=== PATIENT | female | born 1990 | race African-American/Black ===

== ENCOUNTER 2017-05-21 17:02 | Emergency (ER) | payer OTHER ==
[2017-05-21 17:14] LABS: Glucose,Whole Blood 131 mg/dL (75-99)
[2017-05-21] MEDS ORDERED: SODIUM CHLORIDE 0.9% 500 ML IV STA (19:51)
[2017-05-21] MEDS ORDERED: diphenhydrAMINE 50 MG/ML 1 ML VIAL IVP STA (19:52)
[2017-05-21] MEDS ORDERED: METOCLOPRAMIDE 5 MG/ML 2 ML VIAL IVP STA (19:53)
--- NOTE | 2017-05-21 20:02 | ED ---
Seizure HPI - General Chief Complaint: Seizure Stated Complaint: pos seizure Time Seen by Provider: 05/21/17 19:37 Source: patient Mode of arrival: wheelchair Limitations: no limitations - History of Present Illness Initial Comments: 26-year-old female patient presents to the emergency department today for evaluation after having a seizure. She states that her sister witnessed the seizure. Her sister is now present to provide information however patient reports that the seizure lasted 5 minutes. States that this is actually short for her. States that she was diagnosed with a seizure disorder a couple of years ago. States her last seizure was in March. States that she takes Trileptal and started taking Topamax this weekend. She denies any other new medications. Denies any recent illnesses. She says she has also been having a migraine headache for the last 4 days. States that she does have a history of migraines. States that her pain is located behind her left eye and in her left restoration. She states that she is having sensitivity to light. States she is nauseated. Has not vomited. She states that this is consistent with her usual migraine pattern. She states that she is having some blurred vision in her right eye which is a new symptom her. She states that she is treated by Dr. Baxter as her neurologist. Patient denies any recent rash, fever, chills, shortness breath, chest pain, dizziness, weakness, abdominal pain, diarrhea, constipation, back pain, hematuria, dysuria, urinary urgency, urinary frequency , headache, visual changes, or any other complaints. - Related Data Home Medications Medication Instructions Recorded Confirmed Dicyclomine [Bentyl] 10 mg PO DAILY PRN 05/21/17 05/21/17 Famotidine [Pepcid] 20 mg PO DAILY 05/21/17 05/21/17 OXcarbazepine [Trileptal] 300 mg PO BID 05/21/17 05/21/17 Topiramate [Topamax] 50 tab PO BID 05/21/17 05/21/17 metFORMIN HCL [Glucophage] 500 mg PO BID 05/21/17 05/21/17 Allergies Allergy/AdvReac Type Severity Reaction Status Date / Time amoxicillin Allergy Diarrhea Verified 05/21/17 19:59 codeine Allergy Nausea & Verified 05/21/17 19:59 Vomiting Penicillins Allergy Diarrhea Verified 05/21/17 19:59 Review of Systems ROS Statement: Those systems with pertinent positive or pertinent negative responses have been documented in the HPI. ROS Other: All systems not noted in ROS Statement are negative. Past Medical History Past Medical History: Diabetes Mellitus, Seizure Disorder History of Any Multi-Drug Resistant Organisms: None Reported Past Surgical History: Cholecystectomy Past Psychological History: No Psychological Hx Reported Smoking Status: Never smoker Past Alcohol Use History: Rare Past Drug Use History: None Reported General Exam Limitations: no limitations General appearance: alert, in no apparent distress, other (This is a well- developed, well-nourished adult female patient in no acute distress. Vital signs upon presentation are temperature 98.4F, pulse 80, respirations 20, blood pressure 128/88, pulse ox 100% on room air.) Eye exam: Present: normal appearance, PERRL, EOMI. Absent: scleral icterus, conjunctival injection, nystagmus, periorbital swelling ENT exam: Present: normal exam, normal oropharynx, mucous membranes moist Neck exam: Present: normal inspection. Absent: tenderness, meningismus, lymphadenopathy Respiratory exam: Present: normal lung sounds bilaterally. Absent: respiratory distress, wheezes, rales, rhonchi, stridor Cardiovascular Exam: Present: regular rate, normal rhythm, normal heart sounds. Absent: systolic murmur, diastolic murmur, rubs, gallop, clicks GI/Abdominal exam: Present: soft, normal bowel sounds. Absent: distended, tenderness, guarding, rebound, rigid Neurological exam: Present: alert, oriented X3, CN II-XII intact, other ( Strength in all 4 extremities is 5/5.) Psychiatric exam: Present: normal affect, normal mood Skin exam: Present: warm, dry, intact, normal color. Absent: rash Course Vital Signs 05/21/17 05/21/17 17:06 20:10 Temperature 98.4 F Pulse Rate 80 70 Respiratory 20 18 Rate Blood Pressure 128/88 110/67 O2 Sat by Pulse 100 100 Oximetry Medical Decision Making - Medical Decision Making 26-year-old female patient presents to the emergency department today for evaluation of seizure and migraine headache. Physical examination is unremarkable. Patient is neurologically intact. Labs are obtained and were unremarkable. EKG was obtained and showed normal sinus rhythm with a sinus arrhythmia. Patient reported she had been taking her medications as directed. She was reporting symptoms consistent with her usual migraine pattern. She did report some blurred vision in the right eye however visual acuity was 20/25 in both eyes with corrective lenses. Patient was given IV fluids, Reglan, and Benadryl. She reports that symptoms have resolved. She'll be discharged home at this time to follow up with her neurologist. She is instructed to return here immediately for any new, worsening, or concerning symptoms. She verbalizes understanding and agrees with this plan. - Lab Data Result diagrams: 05/21/17 20:18 05/21/17 20:18 Lab Results 05/21/17 05/21/17 05/21/17 Range/Units 17:12 20:18 20:18 WBC 7.7 (3.8-10.6) k/uL RBC 4.96 (3.80-5.40) m/uL Hgb 13.4 (11.4-16.0) gm/dL Hct 41.1 (34.0-46.0) % MCV 82.7 (80.0-100.0) fL MCH 27.1 (25.0-35.0) pg MCHC 32.7 (31.0-37.0) g/dL RDW 14.0 (11.5-15.5) % Plt Count 308 (150-450) k/uL Neutrophils % 44 % Lymphocytes % 43 % Monocytes % 5 % Eosinophils % 6 % Basophils % 1 % Neutrophils # 3.4 (1.3-7.7) k/uL Lymphocytes # 3.3 (1.0-4.8) k/uL Monocytes # 0.4 (0-1.0) k/uL Eosinophils # 0.4 (0-0.7) k/uL Basophils # 0.1 (0-0.2) k/uL Sodium 141 (137-145) mmol/L Potassium 4.1 (3.5-5.1) mmol/L Chloride 105 (98-107) mmol/L Carbon Dioxide 24 (22-30) mmol/L Anion Gap 12 mmol/L BUN 10 (7-17) mg/dL Creatinine 0.70 (0.52-1.04) mg/dL Est GFR (MDRD) Af Amer >60 (>60 ml/min/1.73 sqM) Est GFR (MDRD) Non-Af >60 (>60 ml/min/1.73 sqM) Glucose 109 H (74-99) mg/dL POC Glucose (mg/dL) 131 H (75-99) mg/dL POC Glu Resident Care Director ID Keyana Kaur Calcium 9.5 (8.4-10.2) mg/dL Total Bilirubin 0.4 (0.2-1.3) mg/dL AST 26 (14-36) U/L ALT 34 (9-52) U/L Alkaline Phosphatase 80 (38-126) U/L Total Protein 7.8 (6.3-8.2) g/dL Albumin 4.3 (3.5-5.0) g/dL Urine Color Urine Appearance (Clear) Urine pH (5.0-8.0) Ur Specific Mcnary (1.001-1.035) Urine Protein (Negative) Urine Glucose (UA) (Negative) Urine Ketones (Negative) Urine Blood (Negative) Urine Nitrite (Negative) Urine Bilirubin (Negative) Urine Urobilinogen (<2.0) mg/dL Ur Leukocyte Esterase (Negative) Urine HCG, Qual (Not Detectd) Urine Opiates Screen (NotDetected) Ur Oxycodone Screen (NotDetected) Urine Methadone Screen (NotDetected) Ur Propoxyphene Screen (NotDetected) Ur Barbiturates Screen (NotDetected) U Tricyclic Antidepress (NotDetected) Ur Phencyclidine Scrn (NotDetected) Ur Amphetamines Screen (NotDetected) U Methamphetamines Scrn (NotDetected) U Benzodiazepines Scrn (NotDetected) Urine Cocaine Screen (NotDetected) U Marijuana (THC) Screen (NotDetected) 05/21/17 05/21/17 Range/Units 20:34 20:34 WBC (3.8-10.6) k/uL RBC (3.80-5.40) m/uL Hgb (11.4-16.0) gm/dL Hct (34.0-46.0) % MCV (80.0-100.0) fL MCH (25.0-35.0) pg MCHC (31.0-37.0) g/dL RDW (11.5-15.5) % Plt Count (150-450) k/uL Neutrophils % % Lymphocytes % % Monocytes % % Eosinophils % % Basophils % % Neutrophils # (1.3-7.7) k/uL Lymphocytes # (1.0-4.8) k/uL Monocytes # (0-1.0) k/uL Eosinophils # (0-0.7) k/uL Basophils # (0-0.2) k/uL Sodium (137-145) mmol/L Potassium (3.5-5.1) mmol/L Chloride (98-107) mmol/L Carbon Dioxide (22-30) mmol/L Anion Gap mmol/L BUN (7-17) mg/dL Creatinine (0.52-1.04) mg/dL Est GFR (MDRD) Af Amer (>60 ml/min/1.73 sqM) Est GFR (MDRD) Non-Af (>60 ml/min/1.73 sqM) Glucose (74-99) mg/dL POC Glucose (mg/dL) (75-99) mg/dL POC Glu Resident Care Director ID Calcium (8.4-10.2) mg/dL Total Bilirubin (0.2-1.3) mg/dL AST (14-36) U/L ALT (9-52) U/L Alkaline Phosphatase (38-126) U/L Total Protein (6.3-8.2) g/dL Albumin (3.5-5.0) g/dL Urine Color Yellow Urine Appearance Clear (Clear) Urine pH 5.5 (5.0-8.0) Ur Specific Mcnary 1.032 (1.001-1.035) Urine Protein Trace H (Negative) Urine Glucose (UA) Negative (Negative) Urine Ketones Negative (Negative) Urine Blood Negative (Negative) Urine Nitrite Negative (Negative) Urine Bilirubin Negative (Negative) Urine Urobilinogen <2.0 (<2.0) mg/dL Ur Leukocyte Esterase Negative (Negative) Urine HCG, Qual Not Detected (Not Detectd) Urine Opiates Screen Not Detected (NotDetected) Ur Oxycodone Screen Not Detected (NotDetected) Urine Methadone Screen Not Detected (NotDetected) Ur Propoxyphene Screen Not Detected (NotDetected) Ur Barbiturates Screen Not Detected (NotDetected) U Tricyclic Antidepress Not Detected (NotDetected) Ur Phencyclidine Scrn Not Detected (NotDetected) Ur Amphetamines Screen Not Detected (NotDetected) U Methamphetamines Scrn Not Detected (NotDetected) U Benzodiazepines Scrn Not Detected (NotDetected) Urine Cocaine Screen Not Detected (NotDetected) U Marijuana (THC) Screen Not Detected (NotDetected) Disposition Clinical Impression: Migraine headache, Seizure Disposition: HOME SELF-CARE Condition: Good Instructions: Recurrent Seizures in Adults (ED) Additional Instructions: Follow-up with your neurologist as soon as possible. Keep a seizure and headache diary. Return here immediately for any new, worsening, or concerning symptoms. Referrals: Melissa Sr MD [Primary Care Provider] - 1-2 days Time of Disposition: 21:49
[2017-05-21 20:31] VITALS: RESP 18
[2017-05-21 20:35] LABS: Basophils # (A) 0.1 k/uL (0-0.2); Basophils % (A) 1 %; Eosinophils # (A) 0.4 k/uL (0-0.7); Eosinophils % (A) 6 %; HCT 41.1 % (34.0-46.0); HGB 13.4 gm/dL (11.4-16.0); Lymphocytes # (A) 3.3 k/uL (1.0-4.8); Lymphocytes % (A) 43 %; MCH 27.1 pg (25.0-35.0); MCHC 32.7 g/dL (31.0-37.0); MCV 82.7 fL (80.0-100.0); Mean Platelet Volume 7.8; Monocytes # (A) 0.4 k/uL (0-1.0); Monocytes % (A) 5 %; Neutrophils # (A) 3.4 k/uL (1.3-7.7); Neutrophils % (A) 44 %; Platelet Count 308 k/uL (150-450); RBC 4.96 m/uL (3.80-5.40); WBC 7.7 k/uL (3.8-10.6)
[2017-05-21 20:41] LABS: ALT 34 U/L (9-52); AST 26 U/L (14-36); Albumin 4.3 g/dL (3.5-5.0); Alkaline Phosphatase 80 U/L (38-126); Anion Gap 12 mmol/L; Blood Urea Nitrogen 10 mg/dL (7-17); Calcium 9.5 mg/dL (8.4-10.2); Carbon Dioxide 24 mmol/L (22-30); Chloride 105 mmol/L (98-107); Glucose 109 mg/dL (74-99); Potassium 4.1 mmol/L (3.5-5.1); Sodium 141 mmol/L (137-145); Total Bilirubin 0.4 mg/dL (0.2-1.3); Total Protein 7.8 g/dL (6.3-8.2)
[2017-05-21 20:51] LABS: Appearance,Urine Clear (Clear); Bilirubin,Urine Negative (Negative); Blood,Urine Negative (Negative); Color,Urine Yellow; Glucose,Urine (UA) Negative (Negative); Ketones,Urine Negative (Negative); Leukocyte Esterase,Urine Negative (Negative); Nitrite,Urine Negative (Negative); PH, Urine 5.5 (5.0-8.0); Protein,Urine Trace (Negative); Specific Gravity,Urine 1.032 (1.001-1.035); Urobilinogen,Urine <2.0 mg/dL (<2.0)
[2017-05-21 20:59] LABS: Amphetamine Screen,Urine Not Detected (NotDetected); Barbiturate Screen,Urine Not Detected (NotDetected); Benzodiazepines Screen,Urine Not Detected (NotDetected); Cocaine Screen,Urine Not Detected (NotDetected); Methadone Screen, Urine Not Detected (NotDetected); Opiate Screen,Urine Not Detected (NotDetected); Oxycodone Screen, Urine Not Detected (NotDetected); Phencyclidine Screen,Urine Not Detected (NotDetected); Tricyclic Antidepressant,Urine Not Detected (NotDetected); Urn Cannabinoid Scrn Not Detected (NotDetected)
[2017-05-21 22:19] VITALS: BP 107/59; PULSE 95; TEMP 98.2
== END 2017-05-21 22:19 | disposition home or self-care (01) ==
LOC: EC 17:02
DX: G43.909 Migraine, unspecified, not intractable, without status migrainosus (principal); R56.9 Unspecified convulsions; E11.9 Type 2 diabetes mellitus without complications; Z79.899 Other long term (current) drug therapy; Z79.84 Long term (current) use of oral hypoglycemic drugs; Z88.0 Allergy status to penicillin; Z88.5 Allergy status to narcotic agent
CPT/HCPCS: 36415; 93005; 80053; 85025; 81003; 81025; 80306; 99284; 96374; 96375; J1200; J2765

== ENCOUNTER 2017-08-15 18:24 | Inpatient (IN) | payer MEDICAID, OTHER ==
[2017-08-15] MEDS ORDERED: LORazepam 2 MG/ML INJ IV STA ×2 (19:00→22:27)
[2017-08-15] MEDS: ACETAMINOPHEN TAB 500 MG TAB PO STA ×2 (19:19→19:21)
[2017-08-15 19:24] LABS: Basophils % (A) 0 %; Eosinophils # (A) 0.3 k/uL (0-0.7); Eosinophils % (A) 3 %; HCT 39.4 % (34.0-46.0); HGB 13.1 gm/dL (11.4-16.0); Lymphocytes % (A) 29 %; MCH 27.2 pg (25.0-35.0); MCHC 33.2 g/dL (31.0-37.0); MCV 81.9 fL (80.0-100.0); Mean Platelet Volume 7.4; Monocytes # (A) 0.5 k/uL (0-1.0); Monocytes % (A) 5 %; Neutrophils # (A) 6.1 k/uL (1.3-7.7); Neutrophils % (A) 60 %; Platelet Count 312 k/uL (150-450); RBC 4.81 m/uL (3.80-5.40); RDW 12.9 % (11.5-15.5)
[2017-08-15 19:36] LABS: ALT 27 U/L (9-52); AST 24 U/L (14-36); Albumin 3.9 g/dL (3.5-5.0); Alkaline Phosphatase 83 U/L (38-126); Anion Gap 13 mmol/L; Blood Urea Nitrogen 10 mg/dL (7-17); Calcium 9.6 mg/dL (8.4-10.2); Carbon Dioxide 26 mmol/L (22-30); Chloride 104 mmol/L (98-107); Glucose 137 mg/dL (74-99); Potassium 3.9 mmol/L (3.5-5.1); Sodium 143 mmol/L (137-145); Total Bilirubin 0.4 mg/dL (0.2-1.3); Total Protein 7.1 g/dL (6.3-8.2)
--- NOTE | 2017-08-15 19:54 | CT ---
EXAMINATION TYPE: CT brain wo con DATE OF EXAM: 08/15/2017 COMPARISON: NONE INDICATION: Seizure today, history of seizures. DLP: 981.7 mGycm, Automated exposure control for dose reduction was used. CONTRAST: None CT of the brain is performed utilizing 3 mm thick sections through the posterior fossa and 3 mm thick sections through the remaining calvarium. Study is performed within 24 hours of arrival to the hosp [facility]. No abnormal hyperdensity is present to suggest an acute intracranial hemorrhage. No mass lesion is evident. No acute infarcts are evident. Ventricles and sulci are appropriate for the patient age. There is extensive mucosal thickening within the bilateral maxillary sinuses ethmoid air cells and le ft sphenoid sinus. Retention cyst within the right sphenoid sinus. Mild mucosal thickening is within the frontal sinuses. Mastoid air cells are clear. IMPRESSIONS: 1. No acute intracranial process. 2. Clinical correlation recommended for pansinusitis.
--- NOTE | 2017-08-15 20:57 | ED ---
Seizure HPI - General Chief Complaint: Seizure Stated Complaint: Suicidal Time Seen by Provider: 08/15/17 18:59 Source: patient, EMS Mode of arrival: EMS - History of Present Illness Initial Comments: 27 years O female with history of seizure disorder hasn't had a seizure today it lasted for 1-2 minutes she was postictal on arrival and she verbalized that she wants to harm she was quite uncooperative she was not forthcoming with information that she expressed some anger when I try to get information about her suicidal ideation or suicidal plan. She has a headache denies any chest pain no shortness of breath, she is angry and no forthcoming with the review of system either - Related Data Home Medications Medication Instructions Recorded Confirmed Dicyclomine [Bentyl] 10 mg PO DAILY PRN 05/21/17 08/15/17 Famotidine [Pepcid] 20 mg PO DAILY 05/21/17 08/15/17 OXcarbazepine [Trileptal] 300 mg PO BID 05/21/17 08/15/17 Topiramate [Topamax] 50 tab PO BID 05/21/17 08/15/17 metFORMIN HCL [Glucophage] 500 mg PO BID 05/21/17 08/15/17 Allergies Allergy/AdvReac Type Severity Reaction Status Date / Time amoxicillin Allergy Diarrhea Verified 08/15/17 18:57 codeine Allergy Nausea & Verified 08/15/17 18:57 Vomiting Penicillins Allergy Diarrhea Verified 08/15/17 18:57 Review of Systems ROS Statement: Those systems with pertinent positive or pertinent negative responses have been documented in the HPI. ROS Other: All systems not noted in ROS Statement are negative. Past Medical History Past Medical History: Diabetes Mellitus, Seizure Disorder History of Any Multi-Drug Resistant Organisms: None Reported Past Surgical History: Cholecystectomy Past Psychological History: No Psychological Hx Reported Smoking Status: Never smoker Past Alcohol Use History: Rare Past Drug Use History: None Reported General Exam - General Exam Comments Initial Comments: General: The patient is awake and alert, in no distress, and does not appear acutely ill. Skin: Skin is warm and dry and no rashes or lesions are noted. Eye: Pupils are equal, round and reactive to light, extra-ocular movements are intact; there is normal conjunctiva bilaterally. Ears, nose, mouth and throat: There are moist mucous membranes and no oral lesions. Neck: The neck is supple, there is no tenderness or JVD. Cardiovascular: There is a regular rate and rhythm. No murmur, rub or gallop is appreciated. Respiratory: To auscultation bilateral, no wheezing no rhonchi no distress respiratory vilchis noticed Gastrointestinal: Soft, non-distended, non-tender abdomen without masses or organomegaly noted. There is no rebound or guarding present. Bowel sounds are unremarkable. Back: There is no tenderness to palpation in the midline. There is no obvious deformity. Musculoskeletal: Normal ROM, no tenderness, There is no pedal edema. There is no calf tenderness or swelling. No cords were appreciated. Neurological: CN II-XII intact, Cranial nerves III through XII are intact. There are no obvious motor or sensory deficits. Coordination appears grossly intact. Speech is normal. Psychiatric: Admits to suicidal ideation, no forthcoming with information Course Vital Signs 08/15/17 08/15/17 18:30 18:45 Temperature 98.0 F Pulse Rate 81 Respiratory 19 19 Rate Blood Pressure 150/91 O2 Sat by Pulse 98 Oximetry EKG is normal sinus rhythm mom with sinus arrhythmia ventricular rate is 69 [place] interval is 156 QRS duration is 96 QT/QTC 390/417 and review of this EKG does not reveal any ST elevation or ST depression All her labs are reviewed and head CT, CBC, CMP are unremarkable head CT is normal she is cleared medically considering her suicidal ideation she ought to be admitted will consult the part 1 of psychiatry Medical Decision Making - Lab Data Result diagrams: 08/15/17 19:12 08/15/17 19:12 Lab Results 08/15/17 08/15/17 Range/Units 19:12 19:12 WBC 10.0 (3.8-10.6) k/uL RBC 4.81 (3.80-5.40) m/uL Hgb 13.1 (11.4-16.0) gm/dL Hct 39.4 (34.0-46.0) % MCV 81.9 (80.0-100.0) fL MCH 27.2 (25.0-35.0) pg MCHC 33.2 (31.0-37.0) g/dL RDW 12.9 (11.5-15.5) % Plt Count 312 (150-450) k/uL Neutrophils % 60 % Lymphocytes % 29 % Monocytes % 5 % Eosinophils % 3 % Basophils % 0 % Neutrophils # 6.1 (1.3-7.7) k/uL Lymphocytes # 3.0 (1.0-4.8) k/uL Monocytes # 0.5 (0-1.0) k/uL Eosinophils # 0.3 (0-0.7) k/uL Basophils # 0.0 (0-0.2) k/uL Sodium 143 (137-145) mmol/L Potassium 3.9 (3.5-5.1) mmol/L Chloride 104 (98-107) mmol/L Carbon Dioxide 26 (22-30) mmol/L Anion Gap 13 mmol/L BUN 10 (7-17) mg/dL Creatinine 0.71 (0.52-1.04) mg/dL Est GFR (CKD-EPI)AfAm >90 (>60 ml/min/1.73 sqM) Est GFR (CKD-EPI)NonAf >90 (>60 ml/min/1.73 sqM) Glucose 137 H (74-99) mg/dL Calcium 9.6 (8.4-10.2) mg/dL Total Bilirubin 0.4 (0.2-1.3) mg/dL AST 24 (14-36) U/L ALT 27 (9-52) U/L Alkaline Phosphatase 83 (38-126) U/L Total Protein 7.1 (6.3-8.2) g/dL Albumin 3.9 (3.5-5.0) g/dL Disposition Clinical Impression: Seizure disorder, Suicidal ideation, Sinusitis Disposition: ADMITTED IP TO THIS [facility] Referrals: Melissa Sr MD [Primary Care Provider] - 1-2 days
[2017-08-15] MEDS ORDERED: LEVOFLOXACIN 500 MG TAB PO STA (21:00)
[2017-08-15] MEDS ORDERED: ACETAMINOPHEN TAB 500 MG TAB PO PRN (21:00)
[2017-08-15 22:06] LABS: Appearance,Urine Clear (Clear); Bacteria,Urine Occasional /hpf; Bilirubin,Urine Negative (Negative); Blood,Urine Trace (Negative); Color,Urine Yellow; Glucose,Urine (UA) Negative (Negative); Ketones,Urine Negative (Negative); Leukocyte Esterase,Urine Negative (Negative); Mucus,Urine Rare /hpf; Nitrite,Urine Negative (Negative); Protein,Urine Negative (Negative); RBC,Urine 1 /hpf (0-5); Specific Gravity,Urine 1.016 (1.001-1.035); Squamous Epithelial Cell,Urine 2 /hpf (0-4); Urobilinogen,Urine <2.0 mg/dL (<2.0); WBC,Urine 2 /hpf (0-5)
[2017-08-15 22:07] LABS: Amphetamine Screen,Urine Not Detected (NotDetected); Barbiturate Screen,Urine Not Detected (NotDetected); Benzodiazepines Screen,Urine Not Detected (NotDetected); Cocaine Screen,Urine Not Detected (NotDetected); Methadone Screen, Urine Not Detected (NotDetected); Opiate Screen,Urine Not Detected (NotDetected); Oxycodone Screen, Urine Not Detected (NotDetected); Phencyclidine Screen,Urine Not Detected (NotDetected); Tricyclic Antidepressant,Urine Not Detected (NotDetected); Urn Cannabinoid Scrn Not Detected (NotDetected)
[2017-08-15] MEDS ORDERED: MAGNESIUM HYDROXIDE 2,400 MG/10 ML CUP PO PRN (23:40)
[2017-08-15] MEDS ORDERED: ZIPRASIDONE 20 MG VIAL IM PRN (23:40)
[2017-08-15] MEDS ORDERED: MAG HYDROX/AL HYDROX/SIMETH 30 ML CUP PO PRN (23:40)
[2017-08-15] MEDS ORDERED: DICYCLOMINE 10 MG CAP PO PRN (23:44)
[2017-08-16 03:35] VITALS: BP 142/78; PULSE 76; RESP 16; TEMP 98.2; BMI 40.2
[2017-08-16 06:12] LABS: Glucose,Whole Blood 134 mg/dL (75-99)
[2017-08-16] MEDS ORDERED: metFORMIN 500 MG TAB PO SCH (07:30)
[2017-08-16] MEDS ORDERED: TOPIRAMATE 25 MG TAB PO SCH (09:00)
[2017-08-16] MEDS ORDERED: FAMOTIDINE 20 MG TAB PO SCH (09:00)
[2017-08-16] MEDS ORDERED: OXcarbazepine 300 MG TAB PO SCH (09:00)
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
[2017-08-16 12:40] LABS: Glucose,Whole Blood 109 mg/dL (75-99)
--- NOTE | 2017-08-16 12:53 | P.DS ---
Providers Date of admission: 08/15/17 23:37 Expected date of discharge: 08/16/17 Attending physician: Emerson Capone Consults: 08/15/17 23:40 Consult Physician Routine Consulting Provider: Steve Romano Consult Reason/Comments: Follow up H & P Do you want consulting provider notified?: Yes Primary care physician: [facility] Course: Patient had her psychiatric evaluation and psychosocial evaluation. She was not started on any new medications after psychiatric evaluation. Following psychosocial evaluation it was determined that patient could be discharged home safely. In view of this patient is being discharged. Condition on discharge: This is a overweight/obese ambulatory black female with good hygiene. She is polite and cooperative. She does not show any psychomotor agitation or retardation. Her speech is spontaneous relevant and goal-directed. Her mood is mildly anxious and affect is appropriate to the thought content. She denies hallucinations delusional thinking suicidal and homicidal thoughts. She is eager to go home and take care of her daughter and go back to work. Her insight and judgment are adequate. 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 ALLERGY to amoxicillin and codeine and penicillins. Seizure disorder. Diabetes mellitus. GERD. Overweight/obesity. Patient was advised to continue her outpatient treatment with her neurologist and family doctor. Plan - Discharge Summary Discharge Rx Participant: No New Discharge Prescriptions: New Acetaminophen Tab [Tylenol] 1,000 mg PO Q6HR PRN tab PRN Reason: Fever And/ Or Pain Continue Topiramate [Topamax] 50 tab PO BID Dicyclomine [Bentyl] 10 mg PO DAILY PRN PRN Reason: Pain metFORMIN HCL [Glucophage] 500 mg PO BID OXcarbazepine [Trileptal] 300 mg PO BID Famotidine [Pepcid] 20 mg PO DAILY Discharge Medication List Dicyclomine [Bentyl] 10 mg PO DAILY PRN 05/21/17 [History] Famotidine [Pepcid] 20 mg PO DAILY 05/21/17 [History] OXcarbazepine [Trileptal] 300 mg PO BID 05/21/17 [History] Topiramate [Topamax] 50 tab PO BID 05/21/17 [History] metFORMIN HCL [Glucophage] 500 mg PO BID 05/21/17 [History] Acetaminophen Tab [Tylenol] 1,000 mg PO Q6HR PRN tab 08/16/17 [Rx] Follow up Appointment(s)/Referral(s): Melissa Sr MD [Primary Care Provider] - 1-2 days
[2017-08-16 13:11] LABS: Hemoglobin A1C 6.7 % (4.0-6.0)
--- NOTE | 2017-08-16 15:32 | P.CONS ---
History of Present Illness - Reason for Consult Recommendations regarding diabetic medications and medical clearance - History of Present Illness Patient is on 7-year-old pleasant female admitted to psychiatric floor for her psychiatric issues. Patient is diabetic patient denied any fever chills nausea vomiting dysuria. Patient also has seizure disorder patient is seizure-free for longtime. Review of Systems REVIEW OF SYSTEMS: CONSTITUTIONAL: No fever, no malaise, no fatigue. HEENT: No recent visual problems or hearing problems. Denied any sore throat. CARDIOVASCULAR: No chest pain, orthopnea, PND, no palpitations, no syncope. PULMONARY: No shortness of breath, no cough, no hemoptysis. GASTROINTESTINAL: No diarrhea, no nausea, no vomiting, no abdominal pain. Normoactive bowel sounds. NEUROLOGICAL: No headaches, no weakness, no numbness. HEMATOLOGICAL: Denies any bleeding or petechiae. GENITOURINARY: Denies any burning micturition, frequency, or urgency. MUSCULOSKELETAL/RHEUMATOLOGICAL: Denies any joint pain, swelling, or any muscle pain. ENDOCRINE: Denies any polyuria or polydipsia. The rest of the 14-point review of systems is negative. Past Medical History Past Medical History: Diabetes Mellitus, Seizure Disorder History of Any Multi-Drug Resistant Organisms: None Reported Past Surgical History: Cholecystectomy Smoking Status: Never smoker Medications and Allergies Home Medications Medication Instructions Recorded Confirmed Type Dicyclomine [Bentyl] 10 mg PO DAILY PRN 05/21/17 08/15/17 History Famotidine [Pepcid] 20 mg PO DAILY 05/21/17 08/15/17 History OXcarbazepine [Trileptal] 300 mg PO BID 05/21/17 08/15/17 History Topiramate [Topamax] 50 tab PO BID 05/21/17 08/15/17 History metFORMIN HCL [Glucophage] 500 mg PO BID 05/21/17 08/15/17 History Acetaminophen Tab [Tylenol] 1,000 mg PO Q6HR PRN tab 08/16/17 Rx Allergies Allergy/AdvReac Type Severity Reaction Status Date / Time amoxicillin Allergy Diarrhea Verified 08/15/17 23:55 codeine Allergy Nausea & Verified 08/15/17 23:55 Vomiting Penicillins Allergy Diarrhea Verified 08/15/17 23:55 Physical Exam Vitals: Vital Signs Temp Pulse Pulse Resp BP BP Pulse Ox 08/16/17 03:12 98.2 F 76 16 142/78 08/15/17 18:45 19 08/15/17 18:30 98.0 F 81 19 150/91 98 Intake and Output 08/16/17 08/16/17 08/16/17 06:59 14:59 22:59 Other: Weight 127.2 kg PHYSICAL EXAMINATION: GENERAL: The patient is alert and oriented x3, not in any acute distress. Well developed, well nourished. HEENT: Pupils are round and equally reacting to light. EOMI. No scleral icterus. No conjunctival pallor. Normocephalic, atraumatic. No pharyngeal erythema. No thyromegaly. CARDIOVASCULAR: S1 and S2 present. No murmurs, rubs, or gallops. PULMONARY: Chest is clear to auscultation, no wheezing or crackles. ABDOMEN: Soft, nontender, nondistended, normoactive bowel sounds. No palpable organomegaly. MUSCULOSKELETAL: No joint swelling or deformity. EXTREMITIES: No cyanosis, clubbing, or pedal edema. NEUROLOGICAL: Gross neurological examination did not reveal any focal deficits. SKIN: No rashes. Results CBC & Chem 7: 08/15/17 19:12 08/15/17 19:12 Labs: Abnormal Lab Results - Last 24 Hours (Table) 08/15/17 08/15/17 08/16/17 Range/Units 19:12 21:42 06:09 Glucose 137 H (74-99) mg/dL POC Glucose (mg/dL) 134 H (75-99) mg/dL Urine Blood Trace H (Negative) Urine Bacteria Occasional H (None) /hpf Urine Mucus Rare H (None) /hpf 08/16/17 Range/Units 12:27 Glucose (74-99) mg/dL POC Glucose (mg/dL) 109 H (75-99) mg/dL Urine Blood (Negative) Urine Bacteria (None) /hpf Urine Mucus (None) /hpf Assessment and Plan Plan: -Type 2 diabetes mellitus: Patient on metformin I do not have any time to titrate any of her medications at this time patient is to follow with primary get patient. Need to continue her metformin. -Seizure disorder: Patient will continue her antiseizure medication patient is a prolonged time. -Regarding his psychiatric issues management as per primary service. -Gastroesophageal reflux disease -Obesity: Counseling was provided No further recommendations from medicine perspective we'll sign off at this point of time.
== END 2017-08-16 16:10 | disposition home or self-care (01) | DRG 882 ==
LOC: EC 18:24 → 3MHU 23:37
PROVIDERS: ADMIT Psychiatry & Neurology Psychiatry; ATTEND Psychiatry & Neurology Psychiatry
DX: F43.25 Adjustment disorder with mixed disturbance of emotions and conduct (principal); R45.851 Suicidal ideations; Z68.41 Body mass index [BMI] 40.0-44.9, adult; G40.909 Epilepsy, unspecified, not intractable, without status epilepticus; E11.9 Type 2 diabetes mellitus without complications; E66.9 Obesity, unspecified; F60.9 Personality disorder, unspecified; Z62.810 Personal history of physical and sexual abuse in childhood; K21.9 Gastro-esophageal reflux disease without esophagitis; Z88.6 Allergy status to analgesic agent; Z88.1 Allergy status to other antibiotic agents; Z88.0 Allergy status to penicillin; Z81.3 Family history of other psychoactive substance abuse and dependence; Z83.3 Family history of diabetes mellitus; Z81.8 Family history of other mental and behavioral disorders; Z90.49 Acquired absence of other specified parts of digestive tract; Z79.84 Long term (current) use of oral hypoglycemic drugs; Z91.5 Personal history of self-harm; Z79.899 Other long term (current) drug therapy; Z71.3 Dietary counseling and surveillance
CPT/HCPCS: 36415; 70450; 80053; 80306; 81001; 82075; 83036; 84443; 85025; 93005; 96374; 99285

== ENCOUNTER → 2017-08-24 | Outpatient (CLI) | payer OTHER ==
--- NOTE | 2017-08-24 17:52 | MR ---
MR brain without contrast HISTORY: Seizure disorder Correlation CT brain 08/15/2017 Multiplanar multisequence imaging through the brain There is no restricted diffusion. Inflammatory changes present within the paranasal sinuses. Orbits s how symmetric appearance. There is no hemorrhage or hydrocephalus. Brain signal is normal. The cerebe llopontine angles, corpus callosum, cervical medullary junction are within normal limits. There is a partially empty sella present. Brain signal is normal. There are normal vascular flow voids. Choroida l fissure cysts noted right greater than left. IMPRESSION: Sinus disease. No significant brain abnormality evident. Additional findings above.
== END | disposition home or self-care (01) ==
LOC: RADMRIMAIN 14:21
PROVIDERS: ATTEND Psychiatry & Neurology Neurology
DX: G93.0 Cerebral cysts (principal)
CPT/HCPCS: 70551